=== PATIENT | female | born 1990 ===

== ENCOUNTER 2022-08-19 10:49 | Outpatient (CLI) | payer OTHER | END 2022-08-19 13:27 | disposition home or self-care (01) | LOC: PRENATAL 10:49 | PROVIDERS: ATTEND Obstetrics & Gynecology Maternal & Fetal Medicine | DX: O26.849 Uterine size-date discrepancy, unspecified trimester (principal); O09.519 Supervision of elderly primigravida, unspecified trimester; Z14.8 Genetic carrier of other disease; Z3A.15 15 weeks gestation of pregnancy ==

== ENCOUNTER 2022-09-27 08:01 | Outpatient (CLI) | payer OTHER | END 2022-09-27 09:15 | disposition home or self-care (01) | LOC: PRENATAL 08:01 | PROVIDERS: ATTEND Obstetrics & Gynecology Maternal & Fetal Medicine | DX: O26.849 Uterine size-date discrepancy, unspecified trimester (principal); O09.519 Supervision of elderly primigravida, unspecified trimester; Z14.8 Genetic carrier of other disease; Z3A.20 20 weeks gestation of pregnancy ==